=== PATIENT | female | born 1995 | race Caucasian/White ===

== ENCOUNTER 2020-07-05 16:59 | Emergency (ER) | payer BC, SELFPAY ==
--- NOTE | 2020-07-05 17:03 | ED.SKABFB ---
HPI - Skin/Abscess/Foreign Bdy General Chief complaint: Skin/Abscess/Foreign Body Stated complaint: rash congestion swollen throat Time Seen by Provider: 07/05/20 17:03 Source: patient and RN notes reviewed History of Present Illness HPI narrative: Patient is a 24-year-old female who presents the urgent care with complaints of a rash to bilateral arms and legs. Patient states it started on and she assumed it was due to her friend's new cat. Patient states that she has been taking Claritin and the rash has came and gone in some areas. States it is worse on the arms today. Also reports of a sore throat and congestion that started approximately 2 days ago. Patient denies of any known fevers but states she did have some chills and sweats throughout the night. Denies any nausea or vomiting. Denies of any known exposure to strep or Covid. No other acute complaints. No acute distress noted. Patient aware of the plan of care. Some parts of this dictation were generated by voice recognition software and may contain typographical and/or grammatical inaccuracies. Related Data Allergies Allergy/AdvReac Type Severity Reaction Status Date / Time No Known Allergies Allergy Unknown Verified 07/05/20 17:10 Review of Systems Review of Systems: Narrative: CONSTITUTIONAL: Reports of chills and sweats EYES: Denies visual changes, redness, or discharge. ENT: Reports of nasal congestion and sore throat CARDIOVASCULAR: Denies chest pain, palpitations, or edema. RESPIRATORY: Denies cough or dyspnea. GASTROINTESTINAL: Denies abdominal pain, nausea, vomiting, or diarrhea. GENITOURINARY: Denies dysuria or hematuria. SKIN: Reports of a rash to the bilateral arms and lower legs MUSCULOSKELETAL: Denies back pain, joint pain, or myalgia. NEUROLOGIC: Denies headache, numbness, or weakness. All other systems reviewed are negative, except as documented in HPI. PMFSH Comments At the time of my signature, I reviewed and agree with the nursing past medical, surgical, social, and family history. There is no relevant family history pertinent to the patient complaint. Exam Narrative: Exam Narrative: GENERAL: This is a well-nourished, well-developed patient, in no apparent distress. HEAD: normocephalic, atraumatic. EYES: PERRL. Sclera clear/white. Vision is grossly intact. EARS: External ears normal, auditory canals clear and without drainage, mild fluid noted behind right TM without otitis, TMs normal without perforation. Hearing grossly intact. NOSE: External nose normal with no obvious nasal discharge, nares without redness, no rhinorrhea. THROAT: Mucous membranes moist, mild erythema noted posterior oropharynx with very mild left tonsillar edema/erythema without exudate. Mild postnasal drainage. NECK: Neck supple, non-tender without lymphadenopathy CARDIOVASCULAR: Regular rate and rhythm without murmurs, gallops, or rubs. RESPIRATORY: Clear to auscultation. Breath sounds equal bilaterally. No wheezes, rales, or rhonchi. SKIN: Scattered fine rash papular erythemic dermatitis noted bilateral lower arms and bilateral lower legs NEURO: awake, alert, and oriented to person, place and time. There were no obvious focal neurologic abnormalities. EXTREMITIES: No clubbing, cyanosis, or edema. Course Vital Signs Vital signs: Vital Signs Respiratory Rate 16 07/05/20 17:05 Temperature 99.9 F H 07/05/20 17:22 Pulse Rate 103 H 07/05/20 17:22 Respiratory Rate 16 07/05/20 17:22 Blood Pressure 150/85 H 07/05/20 17:22 Pulse Oximetry 100 07/05/20 17:20 Reviewed-patient is informed that they may have pre-hypertension or hypertension based on a blood pressure reading in the department. I recommend the patient call the primary care provider listed on their discharge instructions or a physician of their choice this week to arrange follow-up for further evaluation of possible pre-hypertension or hypertension. MDM - Skin/Abscess/Foreign Bdy MDM Narrat
[2020-07-05 17:05] VITALS: RESP 16
[2020-07-05 17:20] VITALS: O2SAT 100
[2020-07-05 17:22] VITALS: BP 150/85; PULSE 103; RESP 16; TEMP 37.7
[2020-07-06 19:24] LABS: SARS-CoV-2 RNA PCR Negative
== END 2020-07-05 17:25 | disposition home or self-care (01) ==
PROVIDERS: Emergency Provider Nurse Practitioner Family
DX: L30.9 Dermatitis, unspecified (principal); J02.9 Acute pharyngitis, unspecified; Z20.822 Contact with and (suspected) exposure to COVID-19
CPT/HCPCS: 87081; 87880; 99203; C9803; G0463; U0003; U0005

== ENCOUNTER 2021-11-11 12:35 | Emergency (ER) | payer BC, SELFPAY ==
[2021-11-11 12:40] VITALS: BP 119/66; PULSE 84; RESP 16; TEMP 36.9; O2SAT 100
--- NOTE | 2021-11-11 12:57 | ED.SKABFB ---
HPI - Skin/Abscess/Foreign Bdy General Chief complaint: Skin/Abscess/Foreign Body Stated complaint: POISON GERALOD Time Seen by Provider: 11/11/21 12:58 Source: patient Mode of arrival: ambulatory Limitations: no limitations History of Present Illness HPI narrative: 26-year-old female presented for complaint of spreading rash from buttocks to right lower abdomen over the past week. States she urinated by a davis and believes she touched poison geraldo. Denies nausea, vomiting, fever chills. Denies lip, tongue, throat swelling or itching, shortness of breath or wheezing. Pt has not taken anything for symptoms. Related Data Home Medications Medication Instructions Recorded Confirmed spironolactone 50 mg tablet 50 mg PO DAILY 11/11/21 11/11/21 Allergies Allergy/AdvReac Type Severity Reaction Status Date / Time No Known Allergies Allergy Unknown Verified 11/11/21 12:48 Review of Systems Review of Systems: CONSTITUTIONAL: Denies body aches, fever, chills, or sweats. EYES: Denies visual changes, redness, or discharge. ENT: Denies rhinorrhea, congestion CARDIOVASCULAR: Denies chest pain, palpitations, or edema. RESPIRATORY: Denies cough or dyspnea. GASTROINTESTINAL: Denies abdominal pain, nausea, vomiting, or diarrhea. SKIN: reports rash MUSCULOSKELETAL: Denies back pain, joint pain, or myalgia. NEUROLOGIC: Denies headache, numbness, tingling, or weakness. PMFSH Comments At time of signature, I have reviewed and agree with nursing past medical, surgical, social and family history unless otherwise noted. Please see nursing chart for further information. There is no relevant family history pertinent to the presenting complaint Exam Narrative: GENERAL: Well-appearing EYES: conjunctivae clear, and EOMI. ENT: Mucous membranes moist. Oropharynx without edema, erythema or lesions. NECK: Supple. No lymphadenopathy CHEST: Clear to auscultation. HEART: Regular rate and rhythm. SKIN: Warm, dry. Red lesions to right lower abdomen and buttocks, c/w contact dermatitis; no induration or cellulitis/infection NEURO: Alert and oriented x3. Course Course Emergency Course: Patient is aware of diagnosis, understands and agrees to treatment plan. Anticipatory guidance given. Patient agrees to follow-up as directed and is aware of reasons to seek care at the emergency department. Portions of this record may have been created with voice recognition software Level of Care: Express Care Visit Vital Signs Vital signs: Vital Signs Temperature 98.5 F 11/11/21 12:40 Pulse Rate 84 11/11/21 12:40 Respiratory Rate 16 11/11/21 12:40 Blood Pressure 119/66 11/11/21 12:40 Pulse Oximetry 100 11/11/21 12:40 Oxygen Delivery Room Air 11/11/21 12:40 Temperature 98.5 F 11/11/21 12:40 Pulse Rate 84 11/11/21 12:40 Respiratory Rate 16 11/11/21 12:40 Blood Pressure 119/66 11/11/21 12:40 Pulse Oximetry 100 11/11/21 12:40 Oxygen Delivery Room Air 11/11/21 12:40 Reviewed MDM - Skin/Abscess/Foreign Bdy MDM Narrative Medical decision making narrative: PE c/w contact dermatitis. Rx's reviewed. Advised supportive measures and signs/symptoms to go to the ER. Instructed patient to go to nearest ER immediately for any worsening symptoms including but not limited to: fever, spreading rash, pain, sore throat, headache, dizziness, chest pain, trouble breathing, or any symptoms concerning to the patient. Pt is appropriate for outpt treatment and f/u. Differential Diagnosis Differential diagnosis: Likely abscess of skin or subcutaneous tissue, urticaria, herpes zoster, cellulitis and contact dermatitis Discharge Plan Discharge Clinical Impression: Contact dermatitis Patient Disposition: Home, Self-Care Condition: Stable Instructions: Antibiotic Form, Poison Geraldo (ED) Additional Instructions: Take the steroid and pepcid prescriptions as directed Take Benadryl every 6-8 hours as needed for itching.
== END 2021-11-11 13:08 | disposition home or self-care (01) ==
PROVIDERS: Emergency Provider Nurse Practitioner Family; Referring Provider Emergency Medicine
DX: L25.9 Unspecified contact dermatitis, unspecified cause (principal)
CPT/HCPCS: 99213; G0463

== ENCOUNTER 2023-12-16 11:36 | Emergency (ER) | payer BC, SELFPAY ==
[2023-12-16 11:43] VITALS: BP 151/81; PULSE 84; RESP 20; TEMP 37.3; O2SAT 100
--- NOTE | 2023-12-16 18:13 | ED_ITS ---
HPI - Skin/Abscess/Foreign Bdy General Chief complaint: Skin/Abscess/Foreign Body Stated complaint: rash all over Time Seen by Provider: 12/16/23 11:49 Source: patient, RN notes reviewed and old records reviewed Mode of arrival: ambulatory Limitations: no limitations History of Present Illness HPI narrative: 28-year-old female to Express Care with complaint of rash. Patient states she did yd work on Sunday wearing shorts. Patient states that rash started on Sunday on left arm, left hand, bilateral legs. Patient describes rash as red and itching. Patient resting uncomfortably in exam room acute distress. Related Data Home Medications Medication Instructions Recorded Confirmed spironolactone 50 mg tablet 50 mg PO DAILY 11/11/21 12/16/23 levonorgestrel 21 mcg/24 hr (up to 1 device intrauterine ONCE 12/16/23 12/16/23 8 years) 52 mg intrauterine device (Mirena) Allergies Allergy/AdvReac Type Severity Reaction Status Date / Time No Known Allergies Allergy Unknown Verified 12/16/23 11:48 Review of Systems Review of Systems: All systems reviewed & are unremarkable except as noted in HPI and below Constitutional: Constitutional: Reports no additional constitutional complaints Eyes: Eyes: Reports no additional eye complaints ENT: Reports system reviewed and no additional complaints, except as documented Cardiovascular: Cardiovascular: Reports no additional cardiovascular complaints, Denies chest pain and Denies dyspnea Respiratory: Respiratory: Reports no additional respiratory complaints, Denies cough and Denies dyspnea Musculoskeletal: Musculoskeletal: Reports no additional musculoskeletal complaints Integumentary/Breasts: Skin/Breast: Reports as per HPI and Reports rash Neurologic: Reports system reviewed and no additional complaints, except as documented Psychiatric: Psychiatric: Reports no additional psychiatric complaints PMFSH Comments At the time of my signature, I reviewed and agree with the nursing past medical, surgical, social, and family history. There is no relevant family history pertinent to the patient complaint. Exam Const: General: cooperative, healthy appearing, no acute distress, alert, uncomfortable and well nourished Nutritional Appearance: well nourished Orientation/consciousness: patient oriented x3 Limitations: no limitations HENMT: Head: normal to inspection Ears: external ears normal Face/Nose/Sinus: Normal external nose present, Normal nares present, normal f acial exam, No erythema and No edema Face and sinus: normal facial exam, no erythema and no edema Mouth: Yes Normal oral and palatal mucosa present Eyes: General: appearance normal, both eyes and all related structures Neck: Neck: normal visual inspection, full ROM and no meningeal signs Chest: Chest palpation & inspection: normal inspection of the chest Resp: Effort & Inspection: normal respiratory effort and able to speak in complete sentences Cardio: Jugular venous distension: no JVD Rate: regular rate Rhythm: regular rhythm Back/Spine/Pelvis: Cervical Spine: cervical ROM normal Skin: General skin exam: normal color, turgor normal and rashes ( Bilateral legs, left arm, left hand.) Rashes: rashes noted Other: erythematous, edematous Neuro: General: patient oriented x3, gait normal, moves all extremities and no meningeal signs Speech: normal speech Gait exam (Neuro): Normal gait present Extrem: General: normal to inspection, full ROM and capillary refill normal Psych: Appearance: grossly normal and well kempt Course Course Emergency Course: Some parts of this dictation were generated by voice recognition software and may contain typographical and/or grammatical inaccuracies. Level of Care: Express Care Visit Vital Signs Vital signs: Vital Signs Temperature 37.3 C 12/16/23 11:43 Pulse Rate 84 12/16/23 11:43 Respiratory Rate 20 12/16/23 11:43 Blood Pressure 151/81 H 12/16/23 11:43 Pulse Oximetry 100 12/16/23 11:43 Oxygen Delivery Room Air 12/16/23 11:43 Temperature 37.3 C 12/16/23 11:43 Pulse Rate 84 12/16/23 11:43 Respiratory Rate 20 12/16/23 11:43 Blood Pressure 151/81 H 12/16/23 11:43 Pulse Oximetry 100 12/16/23 11:43 Oxygen Delivery Room Air 12/16/23 11:43 reviewed MDM - Skin/Abscess/Foreign Bdy MDM Narrative Medical decision making narrative: 28-year-old female to Express Care with complaint of rash. Patient states she did yd work on Sunday wearing shorts. Patient states that rash started on Sunday on left arm, left hand, bilateral legs. Patient describes rash as red and itching. Patient resting uncomfortably in exam room acute distress. On exam, erythematous, edematous rash to bilateral legs, left arm, left hand Patient is sitting uncomfortably in exam room nontoxic in appearance. Patient appropriate for outpatient treatment and follow-up. Discharge instructions reviewed with patient, as well as provided in writing per nursing staff. The instructions also include specific and strict return/GO TO THE ER as well as f/u information. All questions have been answered, and the patient deny any further questions with discharge and discharge plan. Some parts of this dictation were generated by voice recognition software and may contain typographical and/or grammatical inaccuracies. Differential Diagnosis Differential diagnosis: Likely abscess of skin or subcutaneous tissue, viral exanthem, dermatophytosis, urticaria, herpes zoster, allergic reaction to drug, cellulitis, eczema, insect bites, impetigo and contact dermatitis Discharge Plan Discharge Clinical Impression: Contact dermatitis Patient Disposition: Home, Self-Care Condition: Stable Instructions: Contact Dermatitis (DC) Additional Instructions: Apply triamcinolone cream as directed Take prednisone as directed Avoid hot showers May apply calamine lotion to rash Avoid scratching and this can cause a secondary infection. May take benadryl 25-50mg every 6 hours as needed for itching. Follow up with your PCP in 3-5 days if symptoms persist or sooner if they worsen Go to the Emergency Room if symptoms worsen- fever, rash spreading with treatment, shortness of breath, tongue swelling, drooling, or chest pain Prescriptions: New triamcinolone acetonide 0.025 % cream 1 applic topical BID Qty: 15 0RF Rx Instructions: apply to rash on face a and/or genitalia if needed triamcinolone acetonide 0.1 % cream 1 applic topical BID Qty: 454 0RF prednisone 20 mg tablet See Rx Instructions .ROUTE .COMPLEX Qty: 9 0RF Rx Instructions: Take 40mg x3 days, 20mg x3 days No Action Mirena 21 mcg/24hr (up to 8 yrs) 52 mg Intrauterine Device 1 device INTRAUTERINE ONCE Rx Instructions: as a single dose spironolactone 50 mg tablet 50 mg PO DAILY Follow-up/Referrals: PHYSICIAN,[facility] [Primary Care Provider] -
== END 2023-12-16 12:08 | disposition home or self-care (01) ==
PROVIDERS: Emergency Provider Nurse Practitioner Family
DX: L25.9 Unspecified contact dermatitis, unspecified cause (principal)
CPT/HCPCS: 99213; G0463